=== PATIENT | male | born 1965 | race Caucasian/White ===

== ENCOUNTER → 2020-01-21 | Outpatient (CLI) | payer OTHER ==
--- NOTE | 2020-01-21 12:15 | XR ---
EXAMINATION TYPE: XR cervical spine limited DATE OF EXAM: 01/21/2020 COMPARISON: NONE HISTORY: 54-year-old male with cervicalgia and neck pain for 2 weeks TECHNIQUE: 3 views FINDINGS: The predental space widening. Mild prevertebral soft tissue thickening of 9 mm. Moderate distention p late degenerative change mid to lower cervical spine with corresponding facet and uncovertebral joint arthropathy. Grade 1 anterolisthesis at C4-C5. There is grade 1 retrolisthesis at C3-C4. The cervico thoracic junction is obscured by the patient's shoulders and not assessed. Normal odontoid view. IMPRESSION: 1. There may be some trace prevertebral soft tissue swelling at 9 mm thick. If warranted, further CT (if concern for occult osseous injury) versus MR (if concern for underlying ligamentous evaluation ca n be considered. 2. Degenerative grade 1 spondylolisthesis at C3-C4 and C4-C5. Of note, the cervicothoracic junction i s obscured by the patient's shoulders and not assessed. 3. Moderate spondylotic changes especially mid to lower cervical spine.
== END | disposition home or self-care (01) ==
LOC: RADXRMAIN 10:26
PROVIDERS: ATTEND Nurse Practitioner Family
DX: M43.16 Spondylolisthesis, lumbar region (principal); M47.812 Spondylosis without myelopathy or radiculopathy, cervical region
CPT/HCPCS: 72040